=== PATIENT | male | born 1990 | race American Indian/Alaskan Native ===

== ENCOUNTER 2020-11-08 15:20 | Emergency (ER) | payer SELFPAY ==
[2020-11-08 19:12] VITALS: BP 105/53
--- NOTE | 2020-11-08 19:18 | Emergency Department Report ---
- General Chief Complaint: Pain General Stated Complaint: WEAK/LIGHT HEAD/RT HAND PAIN Time Seen by Provider: 11/08/20 19:12 Source: patient Mode of arrival: Ambulatory Limitations: No Limitations - History of Present Illness Initial Comments: 29-year-old male who smokes tobacco but otherwise no other significant past history presents to the ER today with complaints of URI symptoms, and right fourth finger pain. Patient states the symptoms started while she was at work today. He reports sore throat, productive cough, runny nose, nasal congestion, dizzy and low back pain. Patient also reports pain to his right fourth finger which he has been having off and on for a year secondary to him doing lots of heavy lifting at work. He denies any recent injury to the finger. He has not seen Ortho for his finger pain. He denies any fever or chills. He denies any recent travel or known ill contacts. Patient reports no other symptoms at this time. Patient also requesting a work note. MD Complaint: sore throat - Related Data Previous Rx's Medication Instructions Recorded Last Taken Type Azithromycin [Zithromax Z-EMELY] 250 mg PO DAILY #1 pack 11/08/20 Unknown Rx Allergies Allergy/AdvReac Type Severity Reaction Status Date / Time No Known Allergies Allergy Unverified 11/08/20 19:12 ED Review of Systems ROS: Stated complaint: WEAK/LIGHT HEAD/RT HAND PAIN Other details as noted in HPI Comment: All other systems reviewed and negative Constitutional: no symptoms reported. denies: chills, diaphoresis, fever, malaise, weakness Eyes: denies: eye pain, eye discharge, vision change ENT: throat pain, congestion, other (Rhinorrhea). denies: ear pain, dental pain, hearing loss, epistaxis Respiratory: cough. denies: orthopnea, shortness of breath, SOB with exertion, SOB at rest, wheezing Cardiovascular: denies: chest pain, palpitations, dyspnea on exertion, orthopne a, edema, syncope, paroxysmal nocturnal dyspnea Endocrine: no symptoms reported Gastrointestinal: denies: abdominal pain, nausea, vomiting, diarrhea, constipation, hematemesis, melena, hematochezia Genitourinary: denies: urgency, dysuria, frequency, hematuria, discharge, testicular pain, testicular mass Musculoskeletal: back pain, arthralgia Skin: denies: rash, lesions, change in color, change in hair/nails, pruritus Neurological: denies: headache, weakness, paresthesias, confusion, abnormal gait, vertigo Psychiatric: denies: anxiety, depression, auditory hallucinations, visual hallucinations, homicidal thoughts, suicidal thoughts Hematological/Lymphatic: denies: easy bleeding, easy bruising ED Past Medical Hx - Past Medical History Previous Medical History?: No - Medications Home Medications: Home Medications Medication Instructions Recorded Confirmed Last Taken Type Azithromycin [Zithromax Z-EMELY] 250 mg PO DAILY #1 pack 11/08/20 Unknown Rx ED Physical Exam - General Limitations: No Limitations General appearance: alert, in no apparent distress - Head Head exam: Present: atraumatic, normocephalic, normal inspection - Eye Eye exam: Present: normal appearance, PERRL, EOMI Pupils: Present: normal accommodation - ENT ENT exam: Present: mucous membranes moist - Expanded ENT Exam Expanded Ear exam: Present: normal external inspection TM/Canal exam: Effusion: Right TM, Left TM Mouth exam: Present: normal external inspection Throat exam: Positive: tonsillar erythema - Neck Neck exam: Present: normal inspection, full ROM. Absent: meningismus - Respiratory Respiratory exam: Present: normal lung sounds bilaterally. Absent: respiratory distress, wheezes, rales, rhonchi - Cardiovascular Cardiovascular Exam: Present: regular rate, normal rhythm, normal heart sounds - GI/Abdominal GI/Abdominal exam: Present: soft. Absent: distended, tenderness, guarding, rebound - Back Exam Back exam: Present: normal inspection - Neurological Exam Neurological exam: Present: alert, oriented X3, CN II-XII intact, normal gait - Psychiatric Psychiatric exam: Present: normal affect, normal mood - Skin Skin exam: Present: intact ED Course Vital Signs 11/08/20 19:07 Temperature 98.3 F Pulse Rate 54 L Respiratory 18 Rate Blood Pressure 105/53 [105/53] O2 Sat by Pulse 100 Oximetry ED Medical Decision Making - Medical Decision Making The patient is resting comfortably, is alert and in no distress. He has normal mental status and is neurologically intact. He appears well and is able to and there is no significant dehydration. There is no respiratory distress and no signs of systemic toxicity. His history, exam, diagnostic testing and current condition do not demonstrate an infectious process such as meningitis, severe pneumonia, retropharyngeal abscess, epiglottitis, sepsis or other serious bacterial infection requiring further testing, treatment, consultation or admission at this time. Discussed suspected diagnosis and treatment plan with patient. Patient instructed to follow-up with the primary care physician or other designated or consulting physician as indicated on the discharge instructions. Critical care attestation.: If time is entered above; I have spent that time in minutes in the direct care of this critically ill patient, excluding procedure time. ED Disposition Clinical Impression: Pharyngitis, URI (upper respiratory infection), Tendonitis of finger Disposition: TO HOME OR SELFCARE Is pt being admited?: No Does the pt Need Aspirin: No Condition: Stable Instructions: Upper Respiratory Infection, Adult, Pharyngitis, Tendinitis, [id number] Additional Instructions: Take the antibiotics as prescribed. You can also take zyrtec, flonase and robitussin or mucinex from over the counter to help with your symptoms. Take motrin or tylenol for pain and drink lots of water. I recommend f/u wth ortho for your finger pain. Return to ED if your symptoms changes or worsens in anyway. Prescriptions: Azithromycin [Zithromax Z-EMELY] 250 mg PO DAILY #1 pack Referrals: MEHRDAD CAMPBELL MD [Staff Physician] - 3-5 Days ALEX WISEMAN MD [Staff Physician] - 3-5 Days Forms: Work/School Release Form(ED)
== END 2020-11-08 19:44 | disposition home or self-care (01) ==
LOC: ED 15:20
DX: M77.8 Other enthesopathies, not elsewhere classified (principal); J06.9 Acute upper respiratory infection, unspecified; J02.9 Acute pharyngitis, unspecified; Z79.899 Other long term (current) drug therapy
CPT/HCPCS: 99281